=== PATIENT | female | born 1965 | race Asian ===

== ENCOUNTER 2019-05-08 06:34 | Day surgery (SDC) | payer BC ==
[2019-05-01 10:15] LABS: ABSOLUTE EOSINOPHILS # (AUTO) 0.4 10^3/uL (0.0-0.6); ABSOLUTE MONOCYTES (AUTO) 0.4 10^3/uL (0.1-1.4); ABSOLUTE NEUT (AUTO) 3.4 10^3/uL (1.7-8.2); BASOPHILS % (AUTO) 0.6 % (0-2); EOSINOPHILS % (AUTO) 5.9 % (0-6); HEMATOCRIT 42.3 % (36.0-47.0); HEMOGLOBIN 14.4 g/dL (12.0-15.5); MEAN CORPUSCULAR HEMOGLOBIN 29.5 pg (27.0-33.4); MEAN CORPUSCULAR VOLUME 87 fl (80-97); MONOCYTES % (AUTO) 6.3 % (3-13); PLATELET COUNT 263 10^3/uL (150-450); RED BLOOD COUNT 4.87 10^6/uL (3.72-5.28); RED CELL DISTRIBUTION WIDTH 12.9 % (11.5-14.0); SEGMENTED NEUTROPHILS % (AUTO) 55.2 % (42-78); TOTAL CELLS COUNTED % (AUTO) 100 %; WHITE BLOOD COUNT 6.2 10^3/uL (4.0-10.5)
[2019-05-01 10:36] LABS: ANION GAP 10 (5-19); BLOOD UREA NITROGEN 21 mg/dL (7-20); CALCIUM 9.7 mg/dL (8.4-10.2); CARBON DIOXIDE 28 mmol/L (22-30); CHLORIDE 102 mmol/L (98-107); GLUCOSE 96 mg/dL (75-110); POTASSIUM 4.6 mmol/L (3.6-5.0)
--- NOTE | 2019-05-01 14:27 | EKG REPORT ---
SEVERITY:- NORMAL ECG - SINUS RHYTHM : Confirmed by: Sarah Cerna MD 01-May-2019 14:26:38
[~2019-05-08 06:34] MED LIST: CEFAZOLIN SODIUM 2 GM in DEXTROSE 5%-WATER 100 ML IV PRN; DEXAMETHASONE SOD PHOSPHATE INJ 4 MG/1 ML VIAL ONE; FENTANYL CITRATE INJ/PF 100 MCG/2 ML AMPUL ONE; LACTATED RINGERS 1000 ML IV PRN; LIDOCAINE 0.5% INJ-PF (5 MG/ML) 50 ML SDV ONE; LIDOCAINE 0.5% INJ-PF (5 MG/ML) 50 ML SDV SUBCUT PRN; MIDAZOLAM 2 MG/2 ML INJ ONE; ONDANSETRON HCL INJ/PF 4 MG/2 ML SDV ONE; PROPOFOL INJ 200 MG/20 ML VIAL IV ONE
[2019-05-08] MEDS ORDERED: SCOPOLAMINE HYDROBROMIDE 1.5 MG PATCH.TD72 ONE (08:28)
[2019-05-08] MEDS ORDERED: BUPIVACAINE HCL 0.5 % INJ/PF 30 ML SDV ONE (08:48)
[2019-05-08] MEDS ORDERED: MEPERIDINE HCL/PF INJ 25 MG/1 ML DISP.SYRIN IV PRN (09:22)
[2019-05-08] MEDS ORDERED: MORPHINE SULFATE 10 MG/ML INJ IV PRN (09:22)
[2019-05-08] MEDS ORDERED: PROMETHAZINE HCL INJ 25 MG/1 ML VIAL IV PRN ×2 (09:22)
[2019-05-08] MEDS ORDERED: FENTANYL CITRATE INJ/PF 100 MCG/2 ML AMPUL IV PRN ×3 (09:22)
[2019-05-08] MEDS ORDERED: ONDANSETRON HCL INJ/PF 4 MG/2 ML SDV IV PRN (09:22)
[2019-05-08] MEDS ORDERED: DIPHENHYDRAMINE HCL 50 MG/ML VIAL IV PRN (09:22)
[2019-05-08] MEDS ORDERED: OXYCODONE-ACETAMINOPHEN 5-325 MG TABLET PO PRN (12:29)
[2019-05-08] MEDS ORDERED: ONDANSETRON HCL INJ/PF 4 MG/2 ML SDV ONE ×2 (12:29→14:23)
[2019-05-08] MEDS ORDERED: FENTANYL CITRATE INJ/PF 100 MCG/2 ML AMPUL ONE (12:34)
--- NOTE | 2019-05-08 12:41 | Operative Report ---
Operative Report DATE OF SURGERY: 05/08/19 PREOPERATIVE DIAGNOSIS: Painful hardware right wrist. Degenerative TFCC tear POSTOPERATIVE DIAGNOSIS: Same plus partial membranous scapholunate ligament tear, flexor tenosynovitis FPL/FDP tendons, iatrogenic distal radius fracture OPERATION: 1. Right wrist arthroscopy with debridement of TFCC/scapholunate ligament. 2. Flexor tenosynovectomy FPL/FDP. 3. Removal of hardware right wrist with revision open reduction internal fixation SURGEON: JACQUE GRAFF ANESTHESIA: GA COMPLICATIONS: Iatrogenic distal radius fracture ESTIMATED BLOOD LOSS: Less than 25 cc PROCEDURE: Indication for above procedure: 53-year-old female who sustained a right distal radius fracture in the past and was treated at an outside facility. Patient's fracture healed appropriately but she began developing pain along the plate and along the ulnar aspect of her wrist. Given the location of patient's plate there was concerned that she may develop attritional rupture of the flexor tendons and thus decision was made to proceed with concomitant wrist arthroscopy and hardware removal. Risk and benefits were explained to the patient she verbalized understanding consented for surgical procedure. Procedure In Detail: Patient was seen and evaluated in the preoperative holding area. The RIGHT upper extremity was initialized and marked. Patient received 2g of Ancef IV for bacterial prophylaxis. Patient was taken back to the operative room where transferred to the operative table and placed under general anesthesia. Once they were adequately anesthetized a nonsterile tourniquet was placed on the upper extremity. A surgical team debriefing was performed ensuring all instrumentation was available, the surgical procedure was discussed with possible concerns reviewed. The upper extremity was prepped with chlorhexidine and alcohol and draped in a sterile fashion. A timeout was done identifying correct patient, procedure and extremity everyone in attendance agree with this and verbalized no concerns. The extremity was exsanguinated the tourniquet was inflated to 250 mmHg. Patient was placed in the [facility] wrist arthroscopy tower with 15 pounds of traction. A 3-4 portal was established arthroscope was introduced into the radiocarpal joint. There was partial tearing of the membranous portion of the scapholunate ligament no evidence of radiocarpal degenerative changes. Via triangulation a 4-5 portal was established and TFCC explored. There was a large TFCC tear with significant chondral defect along the distal aspect of the ulna consistent with grade 3 changes. There was similar grade 3 changes along the proximal lunate indicative of ulnar impingement. The TFCC was then debrided back to a stable base and partial synovectomy performed with electrocautery. The membranous tear of the scapholunate ligament was debrided and cauterized. A midcarpal radial portal was established via triangulation and midcarpal ulnar portal was established. Palpation of the lunotriquetral and scapholunate intervals was performed there is no evidence of intercarpal widening to suggest instability. At that point decision was made to proceed with hardware removal. Previous skin incision was utilized and scar excised. Incision was centered over the palmaris longus. The palmar cutaneous branch of the median nerve was identified and protected. FCR tendon sheath was incised and retracted in a ulnar direction exposing the underlying flexor pollicis longus. Flexor pollicis longus was then retracted. There is mild tensynovitis along the FPL tendon and FDP tendons partial synovectomy performed. No evidence of attritional rupture of the flexor tendons. There was scar tissue over the previous plate the tendinous portion of the pronator quadratus was limited. After elevation of the pronator quadratus the proximal and distal screws were removed. There was notable bony overgrowth along the proximal aspect of the plate this was excised with a osteotome. Upon plate removal there was notable defect along the metadiaphysis aspect of the distal radius with a fracture which was confirmed with C arm fluoroscopy given the large defect and fracture along the metadiaphysis decision was made to proceed with revision open reduction internal fixation. Cancellus and cortical bone from the defect were sent to pathology to ensure no evidence of pathologic fracture. Fresh frozen section via pathology confirmed no evidence of malignancy or tumor cells. And thus wound was copiously irrigate d with normal saline. A Acumed extra-articular distal radius plate was then secured with K wires. Plate was secured distally with cortical screw which brought the plate securely down to the volar aspect of the distal radius. Remaining aspect of the distal radius plate was filled with appropriate sized locking screws avoiding penetration of the dorsal cortex. Technique during drilling included drilling to but not through the far cortex. Previous cortical screw was then switched to the appropriate size locking screw. Fixation was then obtained proximally with bicortical fixation the most proximal screw. Additional bicortical screw was placed along with a locking screw at the most distal hole. The cavitary defect was then filled with synthetic Vitoss bone graft. C-arm fluoroscopy was then obtained confirming synagogue of radial height, inclination and volar tilt. No evidence of intra-articular screw penetration. There is no evidence of DRUJ instability with a negative Sharma test. No crepitus with pronation/supination or wrist range of motion. Wound was copiously irrigated with normal saline. Tourniquet was deflated any peripheral bleeding was controlled with bipolar cautery. The remnant of the pronator quadratus was then reapproximated with 3-0 Monocryl suture. Subcutaneous tissues were closed with interrupted 4-0 Monocryl suture. Skin was closed with running subcuticular 4-0 Monocryl reinforced with Dermabond and Steri-Strips. Sponge counts, instrument counts, needle counts were correct. Patient was then awoken from anesthesia. Transferred from the operating room table to the operating room stretcher. There was no intraoperative complications patient tolerated procedure well stable to PACU. Postoperative plan: Patient follow in the office in 2 weeks at which point we will transition to a wrist fracture brace. We will obtain radiographs at follow-up.
--- NOTE | 2019-05-08 12:47 | Discharge Summary ---
Discharge Summary (SDC) - Discharge Final Diagnosis: Painful hardware right wrist Date of Surgery: 05/08/19 Discharge Date: 05/08/19 Forms: ASU Anesthesia D/C Instruction, Discharge POC-Surgical Service Treatment or Instructions: Schedule Follow Up w/ Dr. Lauri Graff @ [facility] to be seen in 10-14 days or as scheduled [place]: [place]: [place]: Ice and elevate Keep splint clean/dry/intact, do not remove. If your fingers become numb please unwrap the Albert wrap but leave the splint in place, if the sensation does not return within 30 minutes please return to the emergency department. May begin finger range of motion attempting to make full fist. Please use ibuprofen (Motrin or Advil) 600-800 mg every 8 hours as needed for p ain or fever DO NOT TAKE w/ TORADOL may use once TORADOL complete. You may also use acetaminophen (Tylenol) 1000 mg every 4-6 hours as needed for pain or fever. Please be aware that many medications contain acetaminophen, do not exceed a total of 1000 mg of acetaminophen every 6 hours. If ibuprofen and acetaminophen are not sufficient for your pain you may take the Percocet/[place]. Please be aware that the Percocet/[place] does contain Tylenol. Stool softener of choice when on pain medication. USE OF [id number] IBUPROFEN: Ibuprofen (Advil, Nuprin, Medipren, Motrin IB) is a medication for fever and pain control. In addition, it has anti- inflammatory effects which may be beneficial, especially in the treatment of injuries. It's best to take ibuprofen with food. Persons with ulcer disease or allergy to aspirin should notify their physician of this before taking ibuprofen. Ibuprofen can be given every four to six hours, for a total of four doses daily. Age Pain or fever dose Antiinflammatory dose 6-8 yr 200 mg (1 tab) 200 mg (1 tab) 9-11 yr 200 mg (1 tab) 200-400 mg (1-2 tab) 11-14 yr 200-400 mg (1-2 tab) 400 mg (2 tab) 15-adult 400 mg (2 tab) 600 mg (3 tab) ORAL NARCOTIC MEDICATION: You have been given a prescription for pain control. This medication is a narcotic. It's best taken with food, as nausea can result if taken on an empty stomach. Don't operate machinery or drive within six hours of taking this medication. Do not combine this medicine with alcohol, or with any medication which can cause sedation (such as cold tablets or sleeping pills) unless you get permission from the physician. Narcotics tend to cause constipation. If possible, drink plenty of fluids and eat a diet high in fiber and fruits. Please be aware that prescription narcotics also have the potential for abuse. People become addicted to these medications because of the general sense of wellbeing that they induce. This feeling along with a significant reduction in tension, anxiety, and aggression provides a stimulating seductive quality to these drugs. Once your pain is under control, we encourage you to discard your unused narcotics. Prescriptions: Oxycodone HCl [Oxy-Ir 5 mg Tablet] 5 mg PO Q6HP PRN #25 tab PRN Reason: Ketorolac Tromethamine [Toradol 10 mg Tablet] 10 mg PO Q8HP PRN #12 tablet PRN Reason: Referrals: NATE PERRY MD [Primary Care Provider] - LAURI GRAFF DO [ACTIVE STAFF] - Discharge Diet: As Tolerated Respiratory Treatments at Home: Deep Breathing/Coughing, Incentive Spirometer Discharge Activity: No Lifting Over 10 Pounds, No Lifting/Push/Pulling Report the Following to Your Physician Immediately: Fever over 101 Degrees, Unusual Bleeding, Redness, Swelling, Warmth, Increased Soreness
[2019-05-08] MEDS ORDERED: KETOROLAC TROMETHAMINE INJ/PF 30 MG/1 ML SDV ONE (13:08)
[2019-05-08] MEDS ORDERED: ROPIVACAINE HCL 0.5% INJ/PF (5 MG/1 ML) 30 ML SDV ONE (13:19)
[2019-05-08 15:57] VITALS: BP 128/80
--- NOTE | 2019-05-08 15:57 | RADIOLOGY REPORT (SQ) ---
EXAM DESCRIPTION: NO CHG FLUORO; WRIST LEFT 2 VIEWS COMPLETED DATE/TIME: 05/08/2019 3:30 pm REASON FOR STUDY: RIGHT WRIST ARTHROPLASTY. ASSISTED WITH FLUORO T84.418S BRKDWN INTERNAL ORTH DWIGHT MARIELENA, IMPLANTS AND GRAFTS, M65.839 OTHER SYNOVITIS AND TENOSYNOVITIS, UNSPECIFIED FOREA M24.139 OTH ER ARTICULAR CARTILAGE DISORDERS, UNSPECIFIED WRI COMPARISON: None. FLUOROSCOPY TIME: 1 min 4 seconds 6 images saved to PACS. TECHNIQUE: Intra-operative images acquired during surgical procedure to evaluate progress. NUMBER OF IMAGES: 6 LIMITATIONS: None. FINDINGS: Limited intraoperative fluoroscopic images demonstrate evidence of distal radial plate and screw fixation. Please see operative report for detailed description. IMPRESSION: IMAGE(S) OBTAINED DURING PROCEDURE. COMMENT: Quality ID [id number]: Final reports for procedures using fluoroscopy that document radiation exp osure indices, or exposure time and number of fluorographic images (if radiation exposure indices are not available) Please consult full operative report of the attending physician for description of the procedure. TECHNICAL DOCUMENTATION: JOB ID: [id number] [employer]- All Rights Reserved Reading location - IP/workstation name: [email or web address]
--- NOTE | 2019-05-08 15:57 | RADIOLOGY REPORT (SQ) ---
EXAM DESCRIPTION: NO CHG FLUORO; WRIST LEFT 2 VIEWS COMPLETED DATE/TIME: 05/08/2019 3:30 pm REASON FOR STUDY: RIGHT WRIST ARTHROPLASTY. ASSISTED WITH FLUORO T84.418S BRKDWN INTERNAL ORTH DWIGHT MARIELENA, IMPLANTS AND GRAFTS, M65.839 OTHER SYNOVITIS AND TENOSYNOVITIS, UNSPECIFIED FOREA M24.139 OTH ER ARTICULAR CARTILAGE DISORDERS, UNSPECIFIED WRI COMPARISON: None. FLUOROSCOPY TIME: 1 min 4 seconds 6 images saved to PACS. TECHNIQUE: Intra-operative images acquired during surgical procedure to evaluate progress. NUMBER OF IMAGES: 6 LIMITATIONS: None. FINDINGS: Limited intraoperative fluoroscopic images demonstrate evidence of distal radial plate and screw fixation. Please see operative report for detailed description. IMPRESSION: IMAGE(S) OBTAINED DURING PROCEDURE. COMMENT: Quality ID [id number]: Final reports for procedures using fluoroscopy that document radiation exp osure indices, or exposure time and number of fluorographic images (if radiation exposure indices are not available) Please consult full operative report of the attending physician for description of the procedure. TECHNICAL DOCUMENTATION: JOB ID: [id number] [employer]- All Rights Reserved Reading location - IP/workstation name: [email or web address]
== END 2019-05-08 15:50 | disposition home or self-care (01) ==
LOC: OROUT 06:34
PROVIDERS: ATTEND Orthopaedic Surgery
DX: S52.501A Unspecified fracture of the lower end of right radius, initial encounter for closed fracture (principal); T84.84XA Pain due to internal orthopedic prosthetic devices, implants and grafts, initial encounter; Y83.9 Surgical procedure, unspecified as the cause of abnormal reaction of the patient, or of later complication, without mention of misadventure at the time of the procedure; S63.591A Other specified sprain of right wrist, initial encounter; X58.XXXA Exposure to other specified factors, initial encounter; M65.831 Other synovitis and tenosynovitis, right forearm; M24.131 Other articular cartilage disorders, right wrist; M25.531 Pain in right wrist; Z79.899 Other long term (current) drug therapy; E78.00 Pure hypercholesterolemia, unspecified
CPT/HCPCS: 93005; 36415; 85025; 80048; 88305 ×2; 88331 ×2; 88311; 73100; 93010; 01830; 29846; 20680; 25607; 25115; J2795; J2250; J3490 ×2; J0690; J1100; J3010; J1885; J2405; J7060; J2704